=== PATIENT | female | born 1990 ===

== ENCOUNTER 2019-04-25 14:58 | Outpatient (CLI) | payer OTHER | END 2019-04-25 15:02 | disposition home or self-care (01) | LOC: TOM 14:58 | DX: L02.818 Cutaneous abscess of other sites (principal) ==

== ENCOUNTER 2019-07-28 12:21 | Emergency (ER) | payer OTHER ==
[~2019-07-28] VITALS: Ht 172.7 cm; Wt 72.6 kg
== END 2019-07-28 15:44 | disposition home or self-care (01) ==
LOC: ER 12:21
DX: J03.90 Acute tonsillitis, unspecified (principal)